=== PATIENT | male | born 1990 | race Caucasian/White ===

== ENCOUNTER 2017-11-21 20:02 | Emergency (ER) | payer OTHER ==
[2017-11-21 20:02] VITALS: BMI 31.9
[2017-11-21 20:15] VITALS: BP 151/77; PULSE 89; RESP 20; TEMP 99.1; O2SAT 98
[2017-11-21] MEDS ORDERED: Amoxicillin-Clav 875-125 mg Tab PO STA (20:37)
[2017-11-21] MEDS ORDERED: Amoxicillin-Clav 875-125 mg Tab PO ONE (20:51)
--- NOTE | 2017-11-21 20:51 | C.PDOC ---
History Of Present Illness Patient presents to ED for evaluation of bilateral ear pain for the last 2 weeks. Seen by Urgent Care doctor, diagnosed with swimmers ear, prescribed cortisporin drops 1 week ago. Noticed improvement to the right ear, but states the left ear is still painful prompting this visit. Denies trauma, fever, vertigo, drainage, or other associated symptoms. Time Seen by Provider: 11/21/17 20:20 Chief Complaint (Nursing): ENT Problem History Per: Patient History/Exam Limitations: None Onset/Duration Of Symptoms: Days Current Symptoms Are (Timing): Still Present Past Medical History Vital Signs: Last Vital Signs Temp 99.1 F 11/21/17 20:07 Pulse 89 11/21/17 20:07 Resp 20 11/21/17 20:07 BP 151/77 H 11/21/17 20:07 Pulse Ox 98 11/21/17 21:07 - Medical History PMH: Asthma Denies: Depression Surgical History: No Surg Hx Family History: States: No Known Family Hx - Social History Hx Alcohol Use: Yes Hx Substance Use: No Review Of Systems Except As Marked, All Systems Reviewed And Found Negative. Constitutional: Negative for: Fever, Chills, Other (vertigo) ENT: Positive for: Ear Pain (left ear). Negative for: Ear Discharge, Nose Congestion Gastrointestinal: Negative for: Nausea, Vomiting Physical Exam - Physical Exam Appears: Non-toxic, No Acute Distress Skin: Normal Color, Warm, Dry Head: No Atraumatic, No Normacephalic Eye(s): bilateral: Normal Inspection, PERRL, EOMI Ear(s): Left: TM Erythema (and edematous external canal ), Right: Normal, Bilateral: Other (no mastoid tenderness ) Nose: Normal Neck: Normal, Supple Chest: Symmetrical Cardiovascular: Rhythm Regular Respiratory: Normal Breath Sounds, No Rales, No Rhonchi, No Stridor Extremity: Normal ROM Extremity: Bilateral: Atraumatic Pulses: Left Radial: Normal, Right Radial: Normal Neurological/Psych: Oriented x3, Normal Speech, Normal Motor, Normal Sensation ED Course And Treatment O2 Sat by Pulse Oximetry: 98 (RA) Medical Decision Making Medical Decision Making: Plan: -Amoxicillin Disposition - Disposition Referrals: Lopez Cabrales MD [Staff Provider] - Disposition: HOME/ ROUTINE Disposition Time: 21:00 Condition: GOOD Additional Instructions: Follow up with the medical doctor within 1-2 days. Return if worsened. Prescriptions: Amoxicillin/Clavulanate [Augmentin 875 MG-125 MG] 1 tab PO BID #14 tab Ofloxacin Otic 0.3% [Floxin 0.3% Otic Soln] 3 drop AU TID #1 bottle Instructions: Ear Infections (Otitis Media) (DC) Forms: [employer] (Armenian) - Clinical Impression Clinical Impression: Otitis media, Otitis externa - PA / MANUFACTURING ASSISTANT / Resident Statement MD/DO has reviewed & agrees with the documentation as recorded. - Scribe Statement The provider has reviewed the documentation as recorded by the Scribe (Alice Singh) All medical record entries made by the Scribe were at my direction and personally dictated by me. I have reviewed the chart and agree that the record accurately reflects my personal performance of the history, physical exam, medical decision making, and the department course for this patient. I have also personally directed, reviewed, and agree with the discharge instructions and disposition.
== END 2017-11-21 21:09 | disposition home or self-care (01) ==
LOC: C.ER 20:02
DX: H66.92 Otitis media, unspecified, left ear (principal); H60.92 Unspecified otitis externa, left ear